=== PATIENT | male | born 1995 | race Two or more races ===

== ENCOUNTER 2019-08-17 17:29 | Emergency (ER) | payer BC ==
[~2019-08-17] VITALS: Ht 180.3 cm; Wt 95.3 kg
[2019-08-17 18:07] VITALS: BP 123/77
[2019-08-17] MEDS ORDERED: LIDOCAINE 1% INJ 50 ML MDV IJ ONE (18:50)
== END 2019-08-17 19:27 | disposition home or self-care (01) ==
LOC: ER 17:35
DX: S01.111A Laceration without foreign body of right eyelid and periocular area, initial encounter (principal); W18.39XA Other fall on same level, initial encounter; Y93.67 Activity, basketball; Y92.39 Other specified sports and athletic area as the place of occurrence of the external cause; Y99.8 Other external cause status
CPT/HCPCS: 12013; 99283; A6403; J3490

== ENCOUNTER 2019-08-23 18:12 | Emergency (ER) | payer BC ==
[~2019-08-23] VITALS: Ht 180.3 cm; Wt 95.3 kg
[2019-08-23 18:28] VITALS: BP 120/82
== END 2019-08-23 19:29 | disposition home or self-care (01) ==
LOC: ER 18:13
DX: S01.111D Laceration without foreign body of right eyelid and periocular area, subsequent encounter (principal); W26.8XXD Contact with other sharp object(s), not elsewhere classified, subsequent encounter